=== PATIENT | male | born 1950 | race Caucasian/White ===

== ENCOUNTER 2018-10-15 14:36 | Inpatient (IN) | payer MEDICARE, OTHER | END 2018-10-31 17:47 | disposition home or self-care (01) | LOC: ER 14:36 → PCU 3S 10-16 08:47 → ED HOLD 17:34 → PCU 3S 19:00 | DX: T82.7XXA Infection and inflammatory reaction due to other cardiac and vascular devices, implants and grafts, initial encounter (principal); A41.9 Sepsis, unspecified organism; N18.6 End stage renal disease; S82.002A Unspecified fracture of left patella, initial encounter for closed fracture; I13.2 Hypertensive heart and chronic kidney disease with heart failure and with stage 5 chronic kidney disease, or end stage renal disease ==